=== PATIENT | female | born 1975 | race Caucasian/White ===

== ENCOUNTER 2017-09-17 18:19 | Emergency (ER) | payer OTHER ==
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
[2017-09-17 18:59] VITALS: BP 149/81; PULSE 116; TEMP 98.1; BMI 21.6
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
== END 2017-09-17 20:10 | disposition home or self-care (01) ==
LOC: JERFT 18:19 → JER 18:19 → JERFT 20:10
DX: S82.892D Other fracture of left lower leg, subsequent encounter for closed fracture with routine healing (principal); V03.00XD Pedestrian on foot injured in collision with car, pick-up truck or van in nontraffic accident, subsequent encounter
CPT/HCPCS: 73562-TC-LT-FY; 73610-TC-LT-FY; 99281-25

== ENCOUNTER 2020-04-22 15:35 | Emergency (ER) | payer OTHER ==
[2020-04-22 16:12] VITALS: BP 164/86; PULSE 101; TEMP 98.4; BMI 27.7
[2020-04-22] MEDS ORDERED: IBUPROFEN 600 MG TABLET (FP) PO ONE ×2 (16:31→17:16)
== END 2020-04-22 17:22 | disposition home or self-care (01) ==
LOC: JER 15:35
DX: J11.1 Influenza due to unidentified influenza virus with other respiratory manifestations (principal); Z11.52 Encounter for screening for COVID-19
CPT/HCPCS: 87426; 99284-25

== ENCOUNTER 2020-05-12 12:09 | Emergency (ER) | payer OTHER ==
[2020-05-12 12:18] VITALS: TEMP 98.1; BMI 28.5
[2020-05-12] MEDS ORDERED: SODIUM CHLORIDE 0.9% 500 ML INFUS.BAG IV ONE (13:55)
[2020-05-12 15:08] LABS: BASO % 0.3 % (0-2.0); EOS % 0.8 % (0-4.5); HEMATOCRIT 35.2 % (32.4-45.2); HEMOGLOBIN 11.8 GM/dL (10.7-15.3); LYMPH % 27.6 % (8-40); MCH 30.2 pg (25.7-33.7); MCHC 33.4 g/dl (32.0-36.0); MEAN CELL VOLUME 90.4 fl (80-96); MEAN PLT VOLUME 7.9 fl (7.5-11.1); NEUT % 62.3 % (42.8-82.8); PLATELET COUNT 323 K/MM3 (134-434); RBC 3.89 M/mm3 (3.60-5.2); RDW 14.1 % (11.6-15.6)
[2020-05-12 15:14] LABS: INR 1.02 (0.83-1.09); PROTHROMBIN TIME (PATIENT) 12.3 SEC (9.7-13.0)
[2020-05-12 15:16] LABS: ACTIVATED PTT 28.5 SECONDS (25.2-36.5)
[2020-05-12 15:27] LABS: CHLORIDE 109 mmol/L (98-107); POTASSIUM 4.2 mmol/L (3.5-5.1); SODIUM 142 mmol/L (136-145)
[2020-05-12 15:29] LABS: CALCIUM 9.8 mg/dL (8.5-10.1)
[2020-05-12 15:30] LABS: ALBUMIN 3.8 g/dl (3.4-5.0); ANION GAP 6 MMOL/L (8-16); BLOOD UREA NITROGEN 12.1 mg/dL (7-18); CO2 27 mmol/L (21-32); GLUCOSE,RANDOM 89 mg/dL (74-106)
[2020-05-12 15:33] LABS: CREATININE 0.6 mg/dL (0.55-1.3); SGOT/AST 13 U/L (15-37); SGPT/ALT 35 U/L (13-61)
[2020-05-12 15:34] LABS: BILIRUBIN,TOTAL 0.7 mg/dL (0.2-1); LDH 179 U/L (84-246)
[2020-05-12 15:35] VITALS: BP 126/67; PULSE 87
[2020-05-12 15:35] LABS: TOT PROT 7.7 g/dl (6.4-8.2)
[2020-05-12 15:36] LABS: ALK PHOS 110 U/L (45-117)
== END 2020-05-12 16:06 | disposition home or self-care (01) ==
LOC: JER 12:09
DX: R07.9 Chest pain, unspecified (principal)
CPT/HCPCS: 36415; 71046-TC-FY; 80053; 82728; 83615; 84484; 84702; 85025; 85379; 85610; 85730; 93005; 93010; 99284-25

== ENCOUNTER 2020-06-07 17:04 | Emergency (ER) | payer OTHER ==
[2020-06-07 17:35] VITALS: BMI 23.3
[2020-06-07] MEDS ORDERED: ACETAMINOPHEN 500 MG TABLET (FP) PO ONE (17:39)
[2020-06-07] MEDS ORDERED: ACETAMINOPHEN 325 MG TABLET (FP) ONE (17:54)
[2020-06-07 19:18] LABS: BASO % 0.2 % (0-2.0); EOS % 0.6 % (0-4.5); HEMATOCRIT 36.4 % (32.4-45.2); HEMOGLOBIN 12.1 GM/dL (10.7-15.3); LYMPH % 29.8 % (8-40); MCH 30.4 pg (25.7-33.7); MCHC 33.3 g/dl (32.0-36.0); MEAN CELL VOLUME 91.4 fl (80-96); MONO % 7.5 % (3.8-10.2); NEUT % 61.9 % (42.8-82.8); PLATELET COUNT 302 K/MM3 (134-434); RBC 3.99 M/mm3 (3.60-5.2); RDW 14.5 % (11.6-15.6); WHITE BLOOD COUNT 7.9 K/mm3 (4.0-10.0)
[2020-06-07 19:25] LABS: INR 1.03 (0.83-1.09); PROTHROMBIN TIME (PATIENT) 12.6 SEC (9.7-13.0)
[2020-06-07 19:28] LABS: ACTIVATED PTT 29.1 SECONDS (25.2-36.5)
[2020-06-07 19:45] LABS: CHLORIDE 108 mmol/L (98-107); POTASSIUM 3.8 mmol/L (3.5-5.1); SODIUM 140 mmol/L (136-145)
[2020-06-07 19:47] LABS: CALCIUM 9.6 mg/dL (8.5-10.1)
[2020-06-07 19:48] LABS: ALBUMIN 4.1 g/dl (3.4-5.0); ANION GAP 6 MMOL/L (8-16); BLOOD UREA NITROGEN 11.8 mg/dL (7-18); CO2 26 mmol/L (21-32); GLUCOSE,RANDOM 88 mg/dL (74-106)
[2020-06-07 19:51] LABS: CREATININE 0.7 mg/dL (0.55-1.3); SGOT/AST 13 U/L (15-37); SGPT/ALT 29 U/L (13-61)
[2020-06-07 19:52] LABS: BILIRUBIN,TOTAL 0.5 mg/dL (0.2-1); TOT PROT 7.8 g/dl (6.4-8.2)
[2020-06-07 19:54] LABS: ALK PHOS 72 U/L (45-117)
[2020-06-08] VITALS: TEMP 98.2
[2020-06-08 00:56] VITALS: BP 113/74; PULSE 91
== END 2020-06-08 00:57 | disposition home or self-care (01) ==
LOC: JER 17:04
DX: R06.02 Shortness of breath (principal); R07.9 Chest pain, unspecified
CPT/HCPCS: 36415; 71045-TC-FY; 71275-TC; 80053; 82550; 84484; 84703; 85025; 85610; 85730; 93005; 93010; 99285-25; Q9967

== ENCOUNTER → 2020-08-11 | Day surgery (SDC) | payer OTHER | END | disposition home or self-care (01) | LOC: JRADUS-SUR 09:42 | PROVIDERS: ATTEND Family Medicine | PROC: 0H9T3ZX Drainage of Right Breast, Percutaneous Approach, Diagnostic (ICD-10-PCS; principal; 2020-08-11) | DX: N60.01 Solitary cyst of right breast (principal) | CPT/HCPCS: 19000; 76942-TC; 87899; 88173; 88305-TC ==

== ENCOUNTER → 2021-10-06 | Day surgery (SDC) | payer OTHER | END | disposition home or self-care (01) | LOC: FMAMMOTONE 09:28 | PROVIDERS: ATTEND Family Medicine | PROC: 0HBU3ZX Excision of Left Breast, Percutaneous Approach, Diagnostic (ICD-10-PCS; principal; 2021-10-06) | DX: C50.412 Malignant neoplasm of upper-outer quadrant of left female breast (principal); Z17.0 Estrogen receptor positive status [ER+]; R92.1 Mammographic calcification found on diagnostic imaging of breast | CPT/HCPCS: 19081; 19082; 76098-TC-FY; 88305-TC; 88342-TC; A4648 ==

== ENCOUNTER 2021-12-20 15:54 | Emergency (ER) | payer OTHER ==
[2021-12-20 16:06] VITALS: BP 153/93; PULSE 108; RESP 20; TEMP 98.3; BMI 29.5
[2021-12-20] MEDS ORDERED: ACETAMINOPHEN 500 MG TABLET (FP) PO ONE (16:18)
[2021-12-20] MEDS ORDERED: IBUPROFEN 600 MG TABLET (FP) PO ONE (16:18)
[2021-12-20 18:13] LABS: THROAT:GRP A STREP NOT DETECTED (NOTDETECTED)
== END 2021-12-20 16:55 | disposition home or self-care (01) ==
LOC: JER 15:54
DX: R05.9 Cough, unspecified (principal); Z11.52 Encounter for screening for COVID-19
CPT/HCPCS: 0241U-QW; 71046-TC-FY; 87651; 99284-25

== ENCOUNTER 2022-01-16 12:03 | Inpatient (IN) | payer OTHER ==
[~2022-01-16 12:03] MED LIST: ACETAMINOPHEN INJECTION 100 ML IVPB ONE; DEXMEDETOMIDINE HCL 200 MCG/2 ML IVPB ONE; ISOSULFAN BLUE 50 MG/5 ML VIAL SQ ONE; KETAMINE HCL 200 MG/20 ML VIAL ONE; LIDOCAINE HCL 1%, 10 MG/ML (20ML VIAL) ONE; MIDAZOLAM HCL 2 MG/2 ML SINGLE DOSE VIAL ONE; PROPOFOL 20 ML ONE; PROPOFOL 40 ML ONE; SUCCINYLCHOLINE CHLORIDE 200 MG/10 ML SYRINGE ONE; ceFAZolin SODIUM 1 GM VIAL IVPB ONE; oxyCODONE HCL 5 MG TABLET PO PRN
[2022-01-16] MEDS ORDERED: ONDANSETRON 4 MG/2 ML VIAL IVPUSH PRN ×2 (12:15→12:35)
[2022-01-16] MEDS ORDERED: ACETAMINOPHEN 500 MG TABLET (FP) PO PRN ×2 (12:17→12:35)
[2022-01-16] MEDS ORDERED: IBUPROFEN 600 MG TABLET (FP) PO PRN ×2 (12:18→12:35)
[2022-01-16] MEDS ORDERED: oxyCODONE HCL 5 MG TABLET PO PRN ×6 (12:19→13:43)
[2022-01-16] MEDS ORDERED: DOCUSATE SODIUM 100 MG CAPSULE (FP) PO PRN ×2 (12:20→12:35)
[2022-01-16] MEDS ORDERED: HYDROmorphone *PCA* 10MG/50ML DISP.SYRIN PCA SCH (13:00)
[2022-01-16] MEDS ORDERED: GABAPENTIN 300 MG CAPSULE PO SCH (14:00)
[2022-01-16] MEDS ORDERED: LACTATED RINGERS SOLUTION 1,000 ML/1,000 ML INFUS.BAG IV SCH (16:15)
[2022-01-16] MEDS: GABAPENTIN 300 MG CAPSULE PO SCH ×2 (17:33→21:54)
[2022-01-16] MEDS: CEFAZOLIN 1 GM in DEXTROSE 5%-WATER - 50 ML IVPB SCH (17:33)
[2022-01-16] MEDS: HYDROmorphone HCl 2 MG/ML VIAL IVPB PRN (17:36)
[2022-01-16 18:09] VITALS: BMI 32.0
[2022-01-16] MEDS: ATORVASTATIN CA 20 MG TABLET (FP) PO SCH (21:54)
[2022-01-16] MEDS ORDERED: ATORVASTATIN CA 20 MG TABLET (FP) PO SCH (22:00)
[2022-01-17] MEDS: CEFAZOLIN 1 GM in DEXTROSE 5%-WATER - 50 ML IVPB SCH ×2 (01:20→09:54)
[2022-01-17] MEDS: HYDROmorphone HCl 2 MG/ML VIAL IVPB PRN ×3 (03:16→14:36)
[2022-01-17] MEDS: GABAPENTIN 300 MG CAPSULE PO SCH ×3 (06:18→21:33)
[2022-01-17] MEDS ORDERED: ESCITALOPRAM OXALATE 10 MG TABLET ONE (09:42)
[2022-01-17] MEDS: ESCITALOPRAM OXALATE 20 MG TABLET PO SCH (09:54)
[2022-01-17] MEDS: FAMOTIDINE 20 MG TABLET PO SCH (09:54)
[2022-01-17] MEDS ORDERED: FAMOTIDINE 10 MG TABLET PO SCH (10:00)
[2022-01-17] MEDS ORDERED: ESCITALOPRAM OXALATE 20 MG TABLET PO SCH (10:00)
[2022-01-17] MEDS: IBUPROFEN 600 MG TABLET (FP) PO SCH ×3 (10:47→21:33)
[2022-01-17] MEDS: ACETAMINOPHEN 500 MG TABLET (FP) PO SCH ×2 (10:48→17:55)
[2022-01-17 12:15] LABS: BASO % 0.2 % (0-2.0); HEMATOCRIT 28.1 % (32.4-45.2); HEMOGLOBIN 9.7 GM/dL (10.7-15.3); LYMPH % 19.3 % (8-40); MCH 31.5 pg (25.7-33.7); MCHC 34.4 g/dl (32.0-36.0); MEAN CELL VOLUME 91.5 fl (80-96); MEAN PLT VOLUME 6.7 fl (7.5-11.1); MONO % 7.8 % (3.8-10.2); NEUT % 71.7 % (42.8-82.8); PLATELET COUNT 288 10^3/uL (134-434); RBC 3.07 M/mm3 (3.60-5.2); RDW 13.8 % (11.6-15.6); WHITE BLOOD COUNT 6.7 K/mm3 (4.0-10.0)
[2022-01-17 12:38] LABS: CALCIUM 8.6 mg/dL (8.5-10.1)
[2022-01-17 12:39] LABS: BLOOD UREA NITROGEN 9.8 mg/dL (7-18)
[2022-01-17 12:42] LABS: CREATININE 0.6 mg/dL (0.55-1.3)
[2022-01-17 19:28] LABS: MAGNESIUM 1.9 mg/dL (1.8-2.4)
[2022-01-17] MEDS: ATORVASTATIN CA 20 MG TABLET (FP) PO SCH (21:34)
[2022-01-18] MEDS: HYDROmorphone HCl 2 MG/ML VIAL IVPB PRN ×2 (01:54→09:42)
[2022-01-18] MEDS: ACETAMINOPHEN 500 MG TABLET (FP) PO SCH ×3 (01:55→18:37)
[2022-01-18] MEDS: IBUPROFEN 600 MG TABLET (FP) PO SCH ×4 (06:49→22:06)
[2022-01-18] MEDS: GABAPENTIN 300 MG CAPSULE PO SCH ×3 (06:50→22:05)
[2022-01-18 08:09] LABS: BASO % 0.1 % (0-2.0); HEMOGLOBIN 10.1 GM/dL (10.7-15.3); LYMPH % 23.7 % (8-40); MCHC 33.7 g/dl (32.0-36.0); MEAN CELL VOLUME 92.1 fl (80-96); MEAN PLT VOLUME 7.2 fl (7.5-11.1); MONO % 8.2 % (3.8-10.2); PLATELET COUNT 299 10^3/uL (134-434); RBC 3.26 M/mm3 (3.60-5.2); WHITE BLOOD COUNT 7.7 K/mm3 (4.0-10.0)
[2022-01-18 08:29] LABS: ALBUMIN 3.3 g/dl (3.4-5.0); CALCIUM 8.8 mg/dL (8.5-10.1)
[2022-01-18 08:30] LABS: BLOOD UREA NITROGEN 8.1 mg/dL (7-18)
[2022-01-18 08:32] LABS: CREATININE 0.5 mg/dL (0.55-1.3)
[2022-01-18 08:35] LABS: BILIRUBIN,TOTAL 0.8 mg/dL (0.2-1); TOT PROT 6.5 g/dl (6.4-8.2)
[2022-01-18] MEDS: ESCITALOPRAM OXALATE 20 MG TABLET PO SCH (10:54)
[2022-01-18] MEDS: FAMOTIDINE 20 MG TABLET PO SCH (10:54)
[2022-01-18] MEDS: DOCUSATE SODIUM 100 MG CAPSULE (FP) PO SCH ×2 (12:14→22:05)
[2022-01-18] MEDS ORDERED: ACETAMINOPHEN 325 MG TABLET (FP) PO PRN ×2 (14:00→14:15)
[2022-01-18] MEDS: oxyCODONE HCL 5 MG TABLET PO PRN ×3 (15:00→22:06)
[2022-01-18] MEDS ORDERED: HYDROmorphone HCl 2 MG/ML VIAL IVPUSH PRN (17:30)
[2022-01-19] MEDS: ACETAMINOPHEN 500 MG TABLET (FP) PO SCH ×2 (03:10→10:04)
[2022-01-19] MEDS: IBUPROFEN 600 MG TABLET (FP) PO SCH ×4 (04:00→21:25)
[2022-01-19] MEDS: GABAPENTIN 300 MG CAPSULE PO SCH ×3 (06:39→21:25)
[2022-01-19] MEDS: oxyCODONE HCL 5 MG TABLET PO PRN (08:00)
[2022-01-19 08:15] LABS: HEMATOCRIT 28.6 % (32.4-45.2); HEMOGLOBIN 9.6 GM/dL (10.7-15.3); MCH 30.9 pg (25.7-33.7); MCHC 33.5 g/dl (32.0-36.0); MEAN CELL VOLUME 92.1 fl (80-96); MEAN PLT VOLUME 7.4 fl (7.5-11.1); PLATELET COUNT 278 10^3/uL (134-434); RDW 13.6 % (11.6-15.6); WHITE BLOOD COUNT 5.9 K/mm3 (4.0-10.0)
[2022-01-19 08:46] LABS: CALCIUM 8.7 mg/dL (8.5-10.1)
[2022-01-19 08:47] LABS: ALBUMIN 2.9 g/dl (3.4-5.0)
[2022-01-19 08:50] LABS: CREATININE 0.5 mg/dL (0.55-1.3)
[2022-01-19 08:51] LABS: BILIRUBIN,TOTAL 0.5 mg/dL (0.2-1); TOT PROT 5.9 g/dl (6.4-8.2)
[2022-01-19] MEDS: FAMOTIDINE 20 MG TABLET PO SCH (09:56)
[2022-01-19] MEDS: ESCITALOPRAM OXALATE 20 MG TABLET PO SCH (09:56)
[2022-01-19] MEDS: POLYETHYLENE GLYCOL (HEALTHYLAX) 3350 17 GM PACKET PO SCH ×2 (10:01→21:26)
[2022-01-19] MEDS: FOLIC ACID 1 MG TABLET (FP) PO SCH (10:02)
[2022-01-19] MEDS: ASCORBIC ACID 500 MG TABLET (FP) PO SCH (10:02)
[2022-01-19] MEDS: METOCLOPRAMIDE HCL 10 MG TABLET (FP) PO SCH ×2 (10:05→16:45)
[2022-01-19] MEDS ORDERED: HYDROmorphone HCl 2 MG/ML VIAL IVPUSH PRN (12:19)
[2022-01-19] MEDS ORDERED: ACETAMINOPHEN 325 MG TABLET (FP) PO PRN (12:20)
[2022-01-19] MEDS ORDERED: oxyCODONE HCL 5 MG TABLET PO PRN (12:20)
[2022-01-19] MEDS: FERROUS SO4 325 MG TABLET (FP) PO SCH ×2 (12:39→17:35)
[2022-01-19] MEDS: BACLOFEN 10 MG TABLET (FP) PO SCH ×2 (12:40→21:24)
[2022-01-20] MEDS: GABAPENTIN 300 MG CAPSULE PO SCH ×3 (06:33→22:50)
[2022-01-20] MEDS: IBUPROFEN 600 MG TABLET (FP) PO SCH ×4 (06:34→22:50)
[2022-01-20] MEDS: METOCLOPRAMIDE HCL 10 MG TABLET (FP) PO SCH ×3 (06:34→16:04)
[2022-01-20 08:45] LABS: HEMATOCRIT 30.5 % (32.4-45.2); MCH 30.4 pg (25.7-33.7); MCHC 32.9 g/dl (32.0-36.0); MEAN CELL VOLUME 92.5 fl (80-96); MEAN PLT VOLUME 7.8 fl (7.5-11.1); PLATELET COUNT 343 10^3/uL (134-434); RBC 3.29 M/mm3 (3.60-5.2); RDW 14.1 % (11.6-15.6); WHITE BLOOD COUNT 6.2 K/mm3 (4.0-10.0)
[2022-01-20] MEDS: FERROUS SO4 325 MG TABLET (FP) PO SCH ×3 (08:45→16:53)
[2022-01-20 08:59] LABS: ALBUMIN 3.1 g/dl (3.4-5.0); CALCIUM 9.1 mg/dL (8.5-10.1)
[2022-01-20 09:00] LABS: CREATININE 0.5 mg/dL (0.55-1.3)
[2022-01-20 09:02] LABS: BILIRUBIN,TOTAL 0.4 mg/dL (0.2-1); TOT PROT 6.2 g/dl (6.4-8.2)
[2022-01-20] MEDS: BACLOFEN 10 MG TABLET (FP) PO SCH ×2 (10:04→22:50)
[2022-01-20] MEDS: FAMOTIDINE 20 MG TABLET PO SCH (10:04)
[2022-01-20] MEDS: ESCITALOPRAM OXALATE 20 MG TABLET PO SCH (10:04)
[2022-01-20] MEDS: ASCORBIC ACID 500 MG TABLET (FP) PO SCH (10:05)
[2022-01-20] MEDS: POLYETHYLENE GLYCOL (HEALTHYLAX) 3350 17 GM PACKET PO SCH ×2 (10:06→22:49)
[2022-01-20] MEDS: FOLIC ACID 1 MG TABLET (FP) PO SCH (10:07)
[2022-01-21] MEDS: METOCLOPRAMIDE HCL 10 MG TABLET (FP) PO SCH ×2 (06:42→11:34)
[2022-01-21] MEDS: IBUPROFEN 600 MG TABLET (FP) PO SCH ×2 (06:42→09:59)
[2022-01-21] MEDS: GABAPENTIN 300 MG CAPSULE PO SCH ×2 (06:43→14:16)
[2022-01-21] MEDS: FERROUS SO4 325 MG TABLET (FP) PO SCH ×2 (08:13→11:34)
[2022-01-21] MEDS: FOLIC ACID 1 MG TABLET (FP) PO SCH (09:59)
[2022-01-21] MEDS: POLYETHYLENE GLYCOL (HEALTHYLAX) 3350 17 GM PACKET PO SCH (09:59)
[2022-01-21] MEDS: ESCITALOPRAM OXALATE 20 MG TABLET PO SCH (10:00)
[2022-01-21] MEDS: FAMOTIDINE 20 MG TABLET PO SCH (10:00)
[2022-01-21] MEDS: BACLOFEN 10 MG TABLET (FP) PO SCH (10:00)
[2022-01-21] MEDS: ASCORBIC ACID 500 MG TABLET (FP) PO SCH (10:00)
[2022-01-21 11:22] VITALS: PULSE 79
[2022-01-21 11:26] VITALS: BP 127/71; RESP 18; TEMP 98.1
[2022-01-23 21:06] LABS: ALPHA 2 MACROGLOBULINS,QN 116 mg/dL (110-276); ALT(SGPT)P5P 79 IU/L (0-40); APOLIPOPROTEIN A-1. 123 mg/dL (116-209); CHOLESTEROL TOTAL 185 mg/dL (100-199); FIBROSIS SCORE 0.09 (0.00-0.21); GLUCOSE SERUM 98 mg/dL (65-99); HEIGHT 60 in (.); WEIGHT- 164 LBS (.)
== END 2022-01-21 15:36 | disposition home or self-care (01) | DRG 362 ==
LOC: JASUSAT 12:03 → J2C 12:36 → J6S 16:44 → JASUSAT 16:45 → J4W 01-17 14:14
PROVIDERS: ADMIT Surgery; ATTEND Surgery
PROC: 0HTV0ZZ Resection of Bilateral Breast, Open Approach (ICD-10-PCS; principal; 2022-01-16 08:00)
PROC: 07B60ZX Excision of Left Axillary Lymphatic, Open Approach, Diagnostic (ICD-10-PCS; 2022-01-16 08:00)
PROC: 0HHV0NZ Insertion of Tissue Expander into Bilateral Breast, Open Approach (ICD-10-PCS; 2022-01-16 08:00)
DX: C50.912 Malignant neoplasm of unspecified site of left female breast (principal); R07.89 Other chest pain; E78.5 Hyperlipidemia, unspecified; D64.9 Anemia, unspecified; K76.0 Fatty (change of) liver, not elsewhere classified; R11.0 Nausea; R10.9 Unspecified abdominal pain; K59.00 Constipation, unspecified; J98.11 Atelectasis
CPT/HCPCS: 36415; 71045-TC-FY; 71275-TC; 76098-TC-FY; 76705-TC; 78195-TC; 80048; 80053; 81025; 82172; 82247; 82465; 82947; 82977; 83010; 83735; 83883; 84450; 84460; 84478; 84484; 85025; 85027; 85379; 86705; 86708; 86709; 86850; 86900; 86901; 87340; 87517; 87522; 88307-TC; 88331-TC; 93005; 93010; 94760; 94761; 97116-GP; 97162-GP; A9541; C1789; J0475; Q9967

== ENCOUNTER 2022-01-30 21:27 | Emergency (ER) | payer OTHER ==
[2022-01-30 21:39] VITALS: BP 143/88; PULSE 97; RESP 18; TEMP 98; BMI 32.0
[2022-01-30] MEDS ORDERED: diphenhydrAMINE HCL 50 MG CAPSULE PO ONE (23:43)
[2022-01-30] MEDS ORDERED: HYDROCORTISONE 1% TOPICAL OINT 30 GM TUBE TP ONE (23:43)
[2022-01-30] MEDS ORDERED: diphenhydrAMINE HCL 25 MG CAPSULE (FP) PO ONE (23:57)
[2022-01-31] MEDS ORDERED: traMADol HCL 50 MG TABLET PO ONE (00:18)
[2022-01-31] MEDS ORDERED: traMADol HCL 50 MG TABLET ONE (00:37)
== END 2022-01-31 01:05 | disposition home or self-care (01) ==
LOC: JERFT 21:27
DX: R21 Rash and other nonspecific skin eruption (principal); T78.40XA Allergy, unspecified, initial encounter
CPT/HCPCS: 99283-25

== ENCOUNTER 2022-06-21 12:50 | Emergency (ER) | payer OTHER ==
[2022-06-21 13:34] VITALS: RESP 18; TEMP 98.1; BMI 28.5
[2022-06-21] MEDS ORDERED: SODIUM CHLORIDE 0.9% 500 ML INFUS.BAG IV ONE (14:30)
[2022-06-21] MEDS ORDERED: ACETAMINOPHEN 1000 MG/100 ML BAG IVPB ONE (14:30)
[2022-06-21] MEDS ORDERED: ONDANSETRON 4 MG/2 ML VIAL IVPUSH ONE (14:30)
[2022-06-21] MEDS ORDERED: ONDANSETRON 4 MG/2 ML VIAL ONE (14:52)
[2022-06-21] MEDS ORDERED: ACETAMINOPHEN INJECTION 100 ML IVPB ONE (14:52)
[2022-06-21 15:14] LABS: BASO % 0.3 % (0-2.0); EOS % 1.7 % (0-4.5); HEMATOCRIT 34.9 % (32.4-45.2); HEMOGLOBIN 11.8 GM/dL (10.7-15.3); LYMPH % 27.8 % (8-40); MCH 31.7 pg (25.7-33.7); MCHC 33.7 g/dl (32.0-36.0); MEAN CELL VOLUME 94.1 fl (80-96); MEAN PLT VOLUME 7.1 fl (7.5-11.1); MONO % 12.5 % (3.8-10.2); NEUT % 57.7 % (42.8-82.8); PLATELET COUNT 192 10^3/uL (134-434); RBC 3.71 M/mm3 (3.60-5.2); RDW 21.3 % (11.6-15.6)
[2022-06-21 15:18] LABS: EPI CELLS 33 /uL (0-25.1); HYALINE CASTS 0 /uL (0-3.1); PH,URINE 5.5 (5.0-8.0); URINE APPEARANCE CLEAR; URINE BACTERIA 447 /uL (0-1359); URINE BILIRUBIN NEGATIVE (NEGATIVE); URINE COLOR YELLOW; URINE GLUCOSE (UA) NEGATIVE (NEGATIVE); URINE KETONE NEGATIVE (NEGATIVE); URINE LEUK ESTERASE TRACE (NEGATIVE); URINE NITRITE NEGATIVE (NEGATIVE); URINE PROTEIN NEGATIVE (NEGATIVE); URINE RBC 2 /uL (0-23.9); URINE UROBILINOGEN 0.2 mg/dL (0.2-1.0); URINE WBC 40 /uL (0-25.8)
[2022-06-21 15:38] LABS: CALCIUM 8.9 mg/dL (8.5-10.1)
[2022-06-21 15:39] LABS: ALBUMIN 3.5 g/dl (3.4-5.0); BLOOD UREA NITROGEN 13.6 mg/dL (7-18); MAGNESIUM 1.7 mg/dL (1.8-2.4)
[2022-06-21 15:42] LABS: BILIRUBIN,TOTAL 0.9 mg/dL (0.2-1); CREATININE 0.5 mg/dL (0.55-1.3); TOT PROT 6.8 g/dl (6.4-8.2)
[2022-06-21 15:58] LABS: ANISOCYTOSIS 2+; MACROCYTOSIS 2+
[2022-06-21 19:45] VITALS: BP 125/71; PULSE 79
== END 2022-06-21 19:47 | disposition home or self-care (01) ==
LOC: JER 12:50
PROC: 3E033NZ Introduction of Analgesics, Hypnotics, Sedatives into Peripheral Vein, Percutaneous Approach (ICD-10-PCS; principal; 2022-06-21)
PROC: 3E033GC Introduction of Other Therapeutic Substance into Peripheral Vein, Percutaneous Approach (ICD-10-PCS; 2022-06-21)
DX: N39.0 Urinary tract infection, site not specified (principal); Z20.822 Contact with and (suspected) exposure to COVID-19
CPT/HCPCS: 0241U-QW; 36415; 74177-TC; 76775-TC; 80053; 81003; 83690; 83735; 84703; 85025; 87086; 93005; 93010; 99285-25; Q9967

== ENCOUNTER 2022-09-10 22:56 | Emergency (ER) | payer OTHER ==
[2022-09-10 23:03] VITALS: PULSE 78; TEMP 97.7; BMI 27.3
[2022-09-10 23:44] LABS: BASO % 0.1 % (0-2.0); EOS % 0.6 % (0-4.5); HEMATOCRIT 35.6 % (32.4-45.2); MCH 33.8 pg (25.7-33.7); MCHC 33.6 g/dl (32.0-36.0); MEAN CELL VOLUME 100.6 fl (80-96); MEAN PLT VOLUME 7.6 fl (7.5-11.1); MONO % 3.8 % (3.8-10.2); NEUT % 88.5 % (42.8-82.8); PLATELET COUNT 225 10^3/uL (134-434); RBC 3.54 M/mm3 (3.60-5.2); RDW 14.4 % (11.6-15.6); WHITE BLOOD COUNT 27.1 K/mm3 (4.0-10.0)
[2022-09-10 23:51] LABS: INR 0.98 (0.83-1.09); PROTHROMBIN TIME (PATIENT) 11.4 SEC (9.7-13.0)
[2022-09-10 23:53] LABS: ACTIVATED PTT 24.3 SECONDS (25.2-36.5)
[2022-09-11] MEDS ORDERED: SODIUM CHLORIDE 0.9% 500 ML INFUS.BAG IV ONE (00:01)
[2022-09-11] MEDS ORDERED: MECLIZINE HCL 25 MG TABLET (FP) PO ONE (00:01)
[2022-09-11 00:03] LABS: POTASSIUM 4.3 mmol/L (3.5-5.1)
[2022-09-11 00:05] LABS: ALBUMIN 3.8 g/dl (3.4-5.0); CALCIUM 9.2 mg/dL (8.5-10.1)
[2022-09-11 00:06] LABS: MAGNESIUM 1.8 mg/dL (1.8-2.4)
[2022-09-11 00:08] LABS: CREATININE 0.6 mg/dL (0.55-1.3)
[2022-09-11 00:10] LABS: BILIRUBIN,TOTAL 0.6 mg/dL (0.2-1); TOT PROT 7.1 g/dl (6.4-8.2)
[2022-09-11] MEDS ORDERED: MECLIZINE HCL 25 MG TABLET (FP) ONE (00:12)
[2022-09-11 03:38] LABS: ANISOCYTOSIS 1+; MACROCYTOSIS 1+; OVALOCYTE 1+
[2022-09-11 03:46] VITALS: BP 111/62; RESP 16
== END 2022-09-11 04:49 | disposition home or self-care (01) ==
LOC: JER 22:56
DX: R07.89 Other chest pain (principal); Z20.822 Contact with and (suspected) exposure to COVID-19
CPT/HCPCS: 36415; 71046-TC-FY; 71275-TC; 80053; 82550; 83735; 84484; 84703; 85025; 85379; 85610; 85730; 87086; 93005; 93010; 99285-25; C9803-CS; U0003; U0005

== ENCOUNTER 2022-11-28 20:05 | Emergency (ER) | payer OTHER ==
[2022-11-28 20:11] VITALS: BMI 31.2
[2022-11-28 21:10] VITALS: BP 128/76; PULSE 81; RESP 19; TEMP 97.3
[2022-11-28] MEDS ORDERED: ONDANSETRON 4 MG/2 ML VIAL IVPUSH ONE (21:15)
[2022-11-28] MEDS ORDERED: FAMOTIDINE 20 MG/50 ML IVPB 20 MG/50 ML MG IVPB ONE ×2 (21:15→21:33)
[2022-11-28] MEDS ORDERED: ONDANSETRON 4 MG/2 ML VIAL ONE (21:33)
[2022-11-28 22:10] LABS: BASO % 0.2 % (0-2.0); EOS % 2.2 % (0-4.5); HEMATOCRIT 38.7 % (32.4-45.2); HEMOGLOBIN 12.8 GM/dL (10.7-15.3); LYMPH % 8.5 % (8-40); MCHC 33.2 g/dl (32.0-36.0); MEAN CELL VOLUME 96.3 fl (80-96); MEAN PLT VOLUME 7.3 fl (7.5-11.1); MONO % 7.2 % (3.8-10.2); NEUT % 81.9 % (42.8-82.8); PLATELET COUNT 292 10^3/uL (134-434); RBC 4.02 M/mm3 (3.60-5.2); RDW 13.3 % (11.6-15.6); WHITE BLOOD COUNT 5.7 K/mm3 (4.0-10.0)
[2022-11-28 22:18] LABS: INR 0.97 (0.83-1.09); PROTHROMBIN TIME (PATIENT) 11.3 SEC (9.7-13.0)
[2022-11-28 22:21] LABS: ACTIVATED PTT 25.5 SECONDS (25.2-36.5)
[2022-11-28 22:24] LABS: POTASSIUM 4.3 mmol/L (3.5-5.1)
[2022-11-28 22:26] LABS: CALCIUM 9.1 mg/dL (8.5-10.1)
[2022-11-28 22:27] LABS: ALBUMIN 3.8 g/dl (3.4-5.0)
[2022-11-28 22:30] LABS: CREATININE 0.6 mg/dL (0.55-1.3)
[2022-11-28 22:31] LABS: TOT PROT 7.4 g/dl (6.4-8.2)
[2022-11-28 22:34] LABS: BILIRUBIN,TOTAL 0.8 mg/dL (0.2-1)
[2022-11-29 00:44] LABS: PH,URINE 5.5 (5.0-8.0); URINE APPEARANCE CLEAR; URINE BILIRUBIN NEGATIVE (NEGATIVE); URINE COLOR YELLOW; URINE GLUCOSE (UA) NEGATIVE (NEGATIVE); URINE KETONE NEGATIVE (NEGATIVE); URINE LEUK ESTERASE NEGATIVE (NEGATIVE); URINE NITRITE NEGATIVE (NEGATIVE); URINE PROTEIN NEGATIVE (NEGATIVE); URINE UROBILINOGEN 0.2 mg/dL (0.2-1.0)
== END 2022-11-29 01:21 | disposition home or self-care (01) ==
LOC: JER 20:05
PROC: 3E033GC Introduction of Other Therapeutic Substance into Peripheral Vein, Percutaneous Approach (ICD-10-PCS; principal; 2022-11-28)
PROC: 3E033GC Introduction of Other Therapeutic Substance into Peripheral Vein, Percutaneous Approach (ICD-10-PCS; 2022-11-28)
DX: G89.18 Other acute postprocedural pain (principal); R10.9 Unspecified abdominal pain; R50.9 Fever, unspecified; M79.10 Myalgia, unspecified site; R42 Dizziness and giddiness; R11.0 Nausea; R19.7 Diarrhea, unspecified; Z20.822 Contact with and (suspected) exposure to COVID-19
CPT/HCPCS: 0241U-QW; 36415; 71045-TC-FY; 74177-TC; 80053; 81003; 83605; 83690; 84484; 84703; 85025; 85610; 85730; 87086; 93005; 93010; 99285-25; Q9967

== ENCOUNTER 2022-12-18 13:05 | Emergency (ER) | payer OTHER ==
[2022-12-18 13:13] VITALS: BP 140/77; PULSE 77; RESP 18; TEMP 97.9; BMI 31.1
[2022-12-18] MEDS ORDERED: METOCLOPRAMIDE HCL INJECTION 10 MG/2 ML VIAL IVPB ONE (13:59)
[2022-12-18] MEDS ORDERED: SODIUM CHLORIDE 0.9% 500 ML INFUS.BAG IV ONE (13:59)
[2022-12-18] MEDS ORDERED: MECLIZINE HCL 25 MG TABLET (FP) PO ONE (13:59)
[2022-12-18] MEDS ORDERED: METOCLOPRAMIDE HCL INJECTION 10 MG/2 ML VIAL ONE (14:13)
[2022-12-18 14:45] LABS: BASO % 0.4 % (0-2.0); EOS % 1.1 % (0-4.5); HEMATOCRIT 34.8 % (32.4-45.2); HEMOGLOBIN 11.6 GM/dL (10.7-15.3); LYMPH % 27.8 % (8-40); MCH 31.4 pg (25.7-33.7); MCHC 33.4 g/dl (32.0-36.0); MEAN CELL VOLUME 93.9 fl (80-96); MEAN PLT VOLUME 7.4 fl (7.5-11.1); NEUT % 61.7 % (42.8-82.8); PLATELET COUNT 285 10^3/uL (134-434); RBC 3.71 M/mm3 (3.60-5.2); RDW 13.1 % (11.6-15.6); WHITE BLOOD COUNT 4.4 K/mm3 (4.0-10.0)
[2022-12-18 14:46] LABS: EPI CELLS 29 /uL (0-25.1); HYALINE CASTS 0 /uL (0-3.1); PH,URINE 6.5 (5.0-8.0); URINE APPEARANCE CLEAR; URINE BACTERIA 166 /uL (0-1359); URINE BILIRUBIN NEGATIVE (NEGATIVE); URINE COLOR YELLOW; URINE GLUCOSE (UA) NEGATIVE (NEGATIVE); URINE KETONE NEGATIVE (NEGATIVE); URINE LEUK ESTERASE 1+ (NEGATIVE); URINE NITRITE NEGATIVE (NEGATIVE); URINE PROTEIN NEGATIVE (NEGATIVE); URINE RBC 5 /uL (0-23.9); URINE UROBILINOGEN 0.2 mg/dL (0.2-1.0); URINE WBC 34 /uL (0-25.8)
[2022-12-18 14:57] LABS: ALBUMIN 3.7 g/dl (3.4-5.0); MAGNESIUM 1.8 mg/dL (1.8-2.4)
[2022-12-18 14:59] LABS: CREATININE 0.6 mg/dL (0.55-1.3)
[2022-12-18 15:01] LABS: BILIRUBIN,TOTAL 0.6 mg/dL (0.2-1); TOT PROT 7.2 g/dl (6.4-8.2)
== END 2022-12-18 18:00 | disposition home or self-care (01) ==
LOC: JER 13:05
PROC: 3E023GC Introduction of Other Therapeutic Substance into Muscle, Percutaneous Approach (ICD-10-PCS; principal; 2022-12-18)
PROC: 3E0337Z Introduction of Electrolytic and Water Balance Substance into Peripheral Vein, Percutaneous Approach (ICD-10-PCS; 2022-12-18)
DX: N39.0 Urinary tract infection, site not specified (principal); R42 Dizziness and giddiness; R51.9 Headache, unspecified; R10.9 Unspecified abdominal pain; R11.0 Nausea; R94.5 Abnormal results of liver function studies; Z20.822 Contact with and (suspected) exposure to COVID-19
CPT/HCPCS: 0241U-QW; 36415; 70450-TC; 80053; 81003; 83690; 83735; 84484; 84703; 85025; 87086; 93005; 93010; 99285-25

== ENCOUNTER 2023-03-31 12:10 | Emergency (ER) | payer OTHER ==
[2023-03-31 12:38] VITALS: BP 137/82; PULSE 81; RESP 18; TEMP 98.2; BMI 23.4
[2023-03-31] MEDS ORDERED: KETOROLAC TROMETHAMINE 30 MG/1 ML VIAL IM ONE (13:26)
[2023-03-31] MEDS ORDERED: LIDOCAINE 5% TOPICAL PATCH TP ONE (13:26)
[2023-03-31] MEDS ORDERED: KETOROLAC TROMETHAMINE 30 MG/1 ML VIAL ONE (13:28)
[2023-03-31] MEDS ORDERED: LIDOCAINE 4% PATCH TP ONE (13:29)
[2023-03-31] MEDS ORDERED: LIDOCAINE PATCH REMOVAL MC SCH (22:00)
== END 2023-03-31 18:34 | disposition home or self-care (01) ==
LOC: JERFT 12:10
PROC: 3E0233Z Introduction of Anti-inflammatory into Muscle, Percutaneous Approach (ICD-10-PCS; principal; 2023-03-31)
DX: M25.512 Pain in left shoulder (principal); M54.50 Low back pain, unspecified; M79.602 Pain in left arm; V49.50XA Passenger injured in collision with unspecified motor vehicles in traffic accident, initial encounter; Y92.410 Unspecified street and highway as the place of occurrence of the external cause
CPT/HCPCS: 71046-TC-FY; 73030-TC-LT-FY; 73060-TC-LT-FY; 99284-25

== ENCOUNTER 2023-04-10 11:32 | Emergency (ER) | payer OTHER ==
[2023-04-10] MEDS ORDERED: SODIUM CHLORIDE 0.9% 500 ML INFUS.BAG IV ONE (12:45)
[2023-04-10 13:32] LABS: BASO % 0.5 % (0-2.0); EOS % 0.5 % (0-4.5); HEMATOCRIT 33.1 % (32.4-45.2); HEMOGLOBIN 11.1 GM/dL (10.7-15.3); LYMPH % 20.7 % (8-40); MCH 31.1 pg (25.7-33.7); MCHC 33.5 g/dl (32.0-36.0); MEAN CELL VOLUME 92.8 fl (80-96); MEAN PLT VOLUME 7.7 fl (7.5-11.1); MONO % 10.4 % (3.8-10.2); NEUT % 67.9 % (42.8-82.8); PLATELET COUNT 228 10^3/uL (134-434); RBC 3.57 M/mm3 (3.60-5.2); RDW 13.6 % (11.6-15.6); WHITE BLOOD COUNT 7.3 K/mm3 (4.0-10.0)
[2023-04-10 13:48] LABS: CHLORIDE 111 mmol/L (98-107); SODIUM 138 mmol/L (136-145)
[2023-04-10 13:50] LABS: CALCIUM 8.6 mg/dL (8.5-10.1)
[2023-04-10 13:51] LABS: ALBUMIN 3.2 g/dl (3.4-5.0); BLOOD UREA NITROGEN 13.4 mg/dL (7-18); CO2 25 mmol/L (21-32); GLUCOSE,RANDOM 88 mg/dL (74-106)
[2023-04-10 13:54] LABS: CREATININE 0.5 mg/dL (0.55-1.3); SGOT/AST 59 U/L (15-37); SGPT/ALT 63 U/L (13-61)
[2023-04-10 13:55] LABS: BILIRUBIN,TOTAL 0.3 mg/dL (0.2-1); TOT PROT 6.7 g/dl (6.4-8.2)
[2023-04-10 13:57] LABS: ALK PHOS 70 U/L (45-117)
[2023-04-10 13:58] LABS: ANION GAP 1 mmol/L (4-13); POTASSIUM 7.1 mmol/L (3.5-5.1)
[2023-04-10 14:45] LABS: POTASSIUM 3.2 mmol/L (3.5-5.1)
[2023-04-10 14:46] LABS: CALCIUM 8.5 mg/dL (8.5-10.1)
[2023-04-10 14:47] LABS: BLOOD UREA NITROGEN 11.8 mg/dL (7-18)
[2023-04-10 14:50] LABS: CREATININE 0.5 mg/dL (0.55-1.3)
[2023-04-10] MEDS ORDERED: POTASSIUM CHLORIDE TABS 20 MEQ TABLET.ER (FP) PO ONE ×2 (15:03→16:31)
[2023-04-10 16:04] VITALS: TEMP 98; BMI 20.9
[2023-04-10] MEDS ORDERED: IBUPROFEN 400 MG TABLET (FP) PO ONE ×2 (16:18→16:31)
[2023-04-10 16:44] VITALS: BP 131/87; PULSE 97; RESP 20
== END 2023-04-10 16:46 | disposition home or self-care (01) ==
LOC: JER 11:32
DX: U07.1 COVID-19 (principal); R06.02 Shortness of breath; R07.89 Other chest pain; R05.9 Cough, unspecified
CPT/HCPCS: 0241U-QW; 36415; 71045-TC-FY; 71275-TC; 80048; 80053; 84484; 84703; 85025; 99285-25; Q9967

== ENCOUNTER 2023-07-26 07:52 | Day surgery (SDC) | payer OTHER ==
[2023-07-23 14:11] VITALS: BMI 22.6
[2023-07-26] MEDS ORDERED: GENTAMICIN SO4 80 MG/2 ML VIAL ONE (08:22)
[2023-07-26] MEDS ORDERED: BUPIVACAINE HCL/PF 0.25% (2.5MG/ML) 10 ML VIAL ONE (08:22)
[2023-07-26] MEDS ORDERED: POLYMYXIN B SULFATE 500,000 UNIT VIAL ONE (08:22)
[2023-07-26] MEDS ORDERED: ceFAZolin SODIUM 1 GM VIAL ONE (08:22)
[2023-07-26] MEDS ORDERED: BUPIVACAINE HCL/PF 2.5 MG/ML - 30 ML VIAL IJ ONE (08:22)
[2023-07-26] MEDS ORDERED: VANCOMYCIN 1,000 MG VIAL (RESTRICTED TO ID ONLY) ONE (08:23)
[2023-07-26] MEDS ORDERED: PROPOFOL 20 ML ONE ×2 (08:48→10:17)
[2023-07-26] MEDS ORDERED: MIDAZOLAM HCL 2 MG/2 ML SINGLE DOSE VIAL ONE (08:48)
[2023-07-26] MEDS ORDERED: FENTANYL CITRATE/PF 50 MCG/ML VIAL ONE ×3 (10:44→11:22)
[2023-07-26] MEDS ORDERED: ONDANSETRON 4 MG/2 ML VIAL ONE (10:44)
[2023-07-26] MEDS ORDERED: oxyCODONE HCL 5 MG TABLET PO PRN (10:46)
[2023-07-26] MEDS: ONDANSETRON 4 MG/2 ML VIAL IVPUSH PRN (10:47)
[2023-07-26] MEDS ORDERED: LACTATED RINGERS SOLUTION 1,000 ML IV SCH (11:00)
[2023-07-26] MEDS ORDERED: ACETAMINOPHEN INJECTION 100 ML IVPB ONE (11:51)
[2023-07-26] MEDS ORDERED: ACETAMINOPHEN 1000 MG/100 ML BAG IVPB ONE (12:00)
[2023-07-26] MEDS: ACETAMINOPHEN 1000 MG/100 ML BAG IVPB ONE (12:00)
[2023-07-26] MEDS: oxyCODONE HCL 5 MG TABLET ONE ×2 (12:50→13:30)
[2023-07-26 12:59] VITALS: RESP 18
[2023-07-26 13:46] VITALS: TEMP 97.9
[2023-07-26 14:05] VITALS: BP 104/56; PULSE 76
== END 2023-07-26 14:15 | disposition home or self-care (01) ==
LOC: FASU 07:52
PROVIDERS: ATTEND Plastic Surgery
PROC: 0HPT0NZ Removal of Tissue Expander from Right Breast, Open Approach (ICD-10-PCS; 2023-07-26)
PROC: 0HRV0JZ Replacement of Bilateral Breast with Synthetic Substitute, Open Approach (ICD-10-PCS; 2023-07-26)
PROC: 0HPU0NZ Removal of Tissue Expander from Left Breast, Open Approach (ICD-10-PCS; principal; 2023-07-26 09:37)
DX: Z85.3 Personal history of malignant neoplasm of breast (principal); Z96.89 Presence of other specified functional implants
CPT/HCPCS: 94760; C1789; J0131

== ENCOUNTER 2023-07-28 20:00 | Emergency (ER) | payer OTHER ==
[2023-07-28 20:09] VITALS: BP 148/74; RESP 18; TEMP 99.3; BMI 22.6
[2023-07-28 21:03] LABS: EPI CELLS 5 /uL (0-25.1); HYALINE CASTS 0 /uL (0-3.1); URINE APPEARANCE CLEAR; URINE BACTERIA 488 /uL (0-1359); URINE BILIRUBIN NEGATIVE (NEGATIVE); URINE COLOR YELLOW; URINE GLUCOSE (UA) NEGATIVE (NEGATIVE); URINE KETONE NEGATIVE (NEGATIVE); URINE LEUK ESTERASE 2+ (NEGATIVE); URINE NITRITE NEGATIVE (NEGATIVE); URINE PROTEIN NEGATIVE (NEGATIVE); URINE RBC 5 /uL (0-23.9); URINE WBC 165 /uL (0-25.8)
[2023-07-28] MEDS ORDERED: SULFAMETHOXAZOLE/TRIMETHOPRIM 800MG/160MG D.S. TABLET ONE (21:22)
[2023-07-28] MEDS ORDERED: ACETAMINOPHEN 325 MG TABLET (FP) ONE (21:23)
[2023-07-28] MEDS: SULFAMETHOXAZOLE/TRIMETHOPRIM 800MG/160MG D.S. TABLET PO ONE (21:28)
[2023-07-28] MEDS: ACETAMINOPHEN 500 MG TABLET (FP) PO ONE (21:28)
[2023-07-28 21:53] VITALS: PULSE 89
== END 2023-07-28 21:53 | disposition home or self-care (01) ==
LOC: JER 20:00
DX: R50.9 Fever, unspecified (principal); R51.9 Headache, unspecified; R30.0 Dysuria; N39.0 Urinary tract infection, site not specified
CPT/HCPCS: 71045-TC-FY; 81003; 87086; 99284-25

== ENCOUNTER 2024-09-12 06:13 | Day surgery (SDC) | payer OTHER ==
[2024-09-11 11:28] VITALS: BMI 27.6
[2024-09-12] MEDS ORDERED: BUPIVACAINE HCL/PF 2.5 MG/ML - 30 ML VIAL IJ ONE (07:33)
[2024-09-12] MEDS ORDERED: BUPIVACAINE HCL/PF 0.25% (2.5MG/ML) 10 ML VIAL ONE (07:33)
[2024-09-12] MEDS ORDERED: PROPOFOL 20 ML ONE (07:42)
[2024-09-12] MEDS ORDERED: MIDAZOLAM HCL 2 MG/2 ML SINGLE DOSE VIAL ONE (07:42)
[2024-09-12] MEDS ORDERED: SUCCINYLCHOLINE CHLORIDE 200 MG/10 ML SYRINGE ONE (07:42)
[2024-09-12] MEDS ORDERED: HYDROmorphone HCL/PF 1 MG/ML VIAL ONE (08:21)
[2024-09-12] MEDS ORDERED: oxyCODONE HCL 5 MG TABLET PO PRN ×2 (10:11)
[2024-09-12] MEDS ORDERED: LACTATED RINGERS SOLUTION 1,000 ML IV SCH (10:15)
[2024-09-12] MEDS ORDERED: FENTANYL CITRATE/PF 50 MCG/ML VIAL ONE (10:25)
[2024-09-12] MEDS: ONDANSETRON 4 MG/2 ML VIAL IVPUSH PRN (10:35)
[2024-09-12] MEDS ORDERED: PROMETHAZINE HCL 25 MG/1 ML VIAL IVPB PRN (10:39)
[2024-09-12 11:01] VITALS: RESP 16
[2024-09-12 11:30] VITALS: PULSE 79; TEMP 96.6
[2024-09-12 12:46] VITALS: BP 122/72
== END 2024-09-12 12:47 | disposition home or self-care (01) ==
LOC: FASU 06:13
PROVIDERS: ATTEND Plastic Surgery
PROC: 0HHV0NZ Insertion of Tissue Expander into Bilateral Breast, Open Approach (ICD-10-PCS; 2024-09-12)
PROC: 0HPU0JZ Removal of Synthetic Substitute from Left Breast, Open Approach (ICD-10-PCS; principal; 2024-09-12 08:21)
PROC: 0HPT0JZ Removal of Synthetic Substitute from Right Breast, Open Approach (ICD-10-PCS; 2024-09-12 08:21)
DX: Z85.3 Personal history of malignant neoplasm of breast (principal)
CPT/HCPCS: 88300-TC; 94760; Q4116